=== PATIENT | female | born 1995 | race African-American/Black ===

== ENCOUNTER 2019-06-07 16:21 | Emergency (ER) | payer SELFPAY ==
[~2019-06-07] VITALS: Ht 160 cm; Wt 58.5 kg
[2019-06-07 16:35] VITALS: BP 112/60
--- NOTE | 2019-06-07 16:55 | PHYS DOC ---
Adult General Chief Complaint Chief Complaint: SORE THROAT HPI HPI Patient is a 24 year old female who presents with 1 day of sore throat, nasal congestion, epigastric pain comes and goes. Patient rates her pain a 9 out of 10. Patient states she is not taking any medications to help her symptoms. (GIANCARLO CHANEL APRN) Review of Systems Review of Systems Constitutional: Denies fever or chills [] Eyes: Denies change in visual acuity, redness, or eye pain [] HENT: nasal congestion or sore throat [] Respiratory: cough or denies shortness of breath [] GI: epigastric abdominal pain, nausea, vomiting, bloody stools or diarrhea [] Musculoskeletal: Bodyaches Denies back pain or joint pain [] All other systems were reviewed and found to be within normal limits, except as documented in this note. (GIANCARLO CHANEL APRN) Physical Exam Physical Exam Constitutional: Well developed, well nourished, no acute distress, non-toxic appearance. [] HENT: Normocephalic, atraumatic, bilateral external ears normal, oropharynx moist, no oral exudates, nose normal. Throat reddened without exudates or swelling. [] Eyes: PERRLA, EOMI, conjunctiva normal, no discharge. [] Neck: Normal range of motion, no tenderness, supple, no stridor. [] Cardiovascular:Heart rate regular rhythm, no murmur [] Lungs & Thorax: Bilateral breath sounds clear to auscultation [] Abdomen: Bowel sounds normal, soft, no tenderness, no masses, no pulsatile masses. [] Neurologic: Alert and oriented X 3, normal motor function, normal sensory function, no focal deficits noted. [] Psychologic: Affect normal, judgement normal, mood normal. [] (GIANCARLO CHANEL APRN) Current Patient Data Vital Signs Vital Signs Date Time Temp Pulse Resp B/P (MAP) Pulse Ox O2 Delivery O2 Flow Rate FiO2 06/07/19 16:35 99.5 104 12 112/60 (77) 97 Room Air 99.5 (HUSAM OCHOA MD) Lab Values Laboratory Tests Test 06/07/19 16:53 06/07/19 17:11 06/07/19 17:14 Influenza Type A Antigen Negative (NEGATIVE) Influenza Type B Antigen Negative (NEGATIVE) Group A Streptococcus Rapid Negative (NEGATIVE) Urine Collection Type Unknown Urine Color Jessie Urine Clarity Clear Urine pH 5.0 Urine Specific [place] 1.020 Urine Protein Negative mg/dL (NEG-TRACE) Urine Glucose (UA) Negative mg/dL (NEG) Urine Ketones (Stick) 15 mg/dL (NEG) Urine Blood Negative (NEG) Urine Nitrite Negative (NEG) Urine Bilirubin Small (NEG) Urine Urobilinogen Dipstick 1.0 mg/dL (0.2 mg/dL) Urine Leukocyte Esterase Large (NEG) Urine RBC 0 /HPF (0-2) Urine WBC 11-20 /HPF (0-4) Urine Squamous Epithelial Cells Many /LPF Urine Bacteria Many /HPF (0-FEW) Urine Mucus Marked /LPF POC Urine HCG, Qualitative Hcg negative (Negative) (HUSAM OCHOA MD) Lab Values Laboratory Tests Test 06/07/19 16:53 06/07/19 17:11 06/07/19 17:14 Influenza Type A Antigen Negative (NEGATIVE) Influenza Type B Antigen Negative (NEGATIVE) Group A Streptococcus Rapid Negative (NEGATIVE) Urine Collection Type Unknown Urine Color Jessie Urine Clarity Clear Urine pH 5.0 Urine Specific [place] 1.020 Urine Protein Negative mg/dL (NEG-TRACE) Urine Glucose (UA) Negative mg/dL (NEG) Urine Ketones (Stick) 15 mg/dL (NEG) Urine Blood Negative (NEG) Urine Nitrite Negative (NEG) Urine Bilirubin Small (NEG) Urine Urobilinogen Dipstick 1.0 mg/dL (0.2 mg/dL) Urine Leukocyte Esterase Large (NEG) Urine RBC 0 /HPF (0-2) Urine WBC 11-20 /HPF (0-4) Urine Squamous Epithelial Cells Many /LPF Urine Bacteria Many /HPF (0-FEW) Urine Mucus Marked /LPF POC Urine HCG, Qualitative Hcg negative (Negative) (GIANCARLO CHANEL APRN) EKG EKG [] (GIANCARLO CHANEL APRN) Radiology/Procedures Radiology/Procedures [] (GIANCARLO CHANEL APRN) Course & Med Decision Making Course & Med Decision Making Patient is a 24 year old female who presents with 1 day of sore throat, nasal congestion, epigastric pain, body aches comes and goes. Patient rates her pain a 9 out of 10. Patient states she is not taking any medications to help her symptoms. Denies nausea, vomiting, dizziness, chest congestion, coughing up any mucus, smoking, diarrhea, fevers. Afebrile. Alert and oriented. Speaks in full clear sentences. Skin pink warm and dry. Ambulatory with a steady gait. Bilateral tympanic membranes pearly white. Throat is reddened but there is no swelling or exudates. There is however postnasal drip seen. Lungs are clear to auscultation all lobes. Abdomen is soft and nontender. Patient denies any dysuria symptoms. Negative flu, Negative Strep, Urinalysis positive for infection. (GIANCARLO CHANEL APRN) Dragon Disclaimer Dragon Disclaimer This electronic medical record was generated, in whole or in part, using a voice recognition dictation system. (GIANCARLO CHANEL APRN) Departure Departure Impression: Primary Impression: Throat pain Additional Impressions: Body aches Nasal congestion UTI (urinary tract infection) Disposition: HOME, SELF-CARE Condition: STABLE Patient Instructions: Sore Throat, Urinary Tract Infection Additional Instructions: Follow up with primary care provider. Take over the counter cold medications. Use Tylenol or Ibuprofen for pain. Scripts Cephalexin (KEFLEX) 500 Mg Capsule 1 CAP PO BID, #14 CAP Prov: GIANCARLO CHANEL APRN 06/07/19 Methylprednisolone (MEDROL) 4 Mg Tab.ds.pk 1 PKG PO UD, #1 PKG Prov: GIANCARLO CHANEL APRN 06/07/19 Attending Signature I have participated in the care of this patient and I have reviewed and agree with all pertinent clinical information above including history, exam, and recommendations. (HUSAM OCHOA MD) Problem Qualifiers Additional Impressions: UTI (urinary tract infection) Urinary tract infection type: site unspecified Hematuria presence: without hematuria Qualified Codes: N39.0 - Urinary tract infection, site not specified GIANCARLO CHANEL APRN Jun 07, 2019 16:55 HUSAM OCHOA MD Jun 08, 2019 18:47
[2019-06-07 17:30] LABS: BILIRUBIN,URINE SMALL (NEG); CLARITY,URINE CLEAR; COLOR,URINE AMBER; NITRITE,URINE NEGATIVE (NEG); PROTEIN,URINE NEGATIVE (NEG-TRACE)
[2019-06-07 17:40] LABS: INFLUENZA A PATIENT NEGATIVE (NEGATIVE); INFLUENZA B PATIENT NEGATIVE (NEGATIVE)
[2019-06-07] MEDS ORDERED: METH4TAB2 PO (17:47)
[2019-06-07 17:48] LABS: SQUAMOUS EPITHELIAL CELL,UR MANY /LPF
[2019-06-07 17:49] LABS: BACTERIA,URINE MANY /HPF (0-FEW); RBC,URINE 0 /HPF (0-2)
[2019-06-07] MEDS ORDERED: CEPH-264 PO (17:51)
== END 2019-06-07 18:20 | disposition home or self-care (01) ==
LOC: ER 18:12
DX: N39.0 Urinary tract infection, site not specified (principal); M79.10 Myalgia, unspecified site; J02.9 Acute pharyngitis, unspecified; R09.81 Nasal congestion
CPT/HCPCS: 81001; 81025; 87070; 87086; 87804; 87880; 99284